=== PATIENT | male | born 1990 | race American Indian/Alaskan Native ===

== ENCOUNTER 2016-09-14 10:43 | Emergency (ER) | payer BC ==
[2016-09-14 11:05] VITALS: BP 112/71
--- NOTE | 2016-09-14 12:35 | Emergency Department Report ---
- General Chief Complaint: Upper Respiratory Infection Stated Complaint: CHEST PAIN Time Seen by Provider: 09/14/16 12:18 Source: patient, family (aunt) Mode of arrival: Ambulatory Limitations: No Limitations - History of Present Illness Initial Comments: Patient presents with cough and shortness of breath. He states he has had moderate congestion that is clear. He states he had subjective fever and took Motrin for this yesterday. He admits to pain in his chest only while coughing. He denies nausea, vomiting, diarrhea, abdominal pain. Symptoms have been present 1 day. He has history of asthma. He denies ever being intubated, or hospitalized for this. MD Complaint: cough, other ("chest congestion") -: Gradual Severity: mild Severity scale (0 -10): 4 Quality: aching Consistency: intermittent Improves With: NSAID, OTC cold medicine Context: sick contacts Associated Symptoms: fever (subj), nasal congestion, cough Treatments Prior to Arrival: Ibuprofen - Related Data Previous Rx's Medication Instructions Recorded Last Taken Type Cetirizine HCl [Allergy] 10 mg PO DAILY #30 tablet 09/14/16 Unknown Rx methylPREDNISolone [Medrol] 4 mg PO DAILY #21 tab.ds.pk 09/14/16 Unknown Rx Allergies Allergy/AdvReac Type Severity Reaction Status Date / Time No Known Allergies Allergy Unverified 01/21/15 10:13 ED Review of Systems ROS: Stated complaint: CHEST PAIN Other details as noted in HPI Constitutional: denies: chills, fever ENT: congestion. denies: ear pain, throat pain Respiratory: cough, shortness of breath. denies: wheezing Cardiovascular: denies: chest pain, palpitations Endocrine: no symptoms reported Gastrointestinal: denies: abdominal pain, nausea, diarrhea Genitourinary: denies: urgency, dysuria Musculoskeletal: denies: back pain, joint swelling, arthralgia Skin: denies: rash, lesions Neurological: denies: headache, weakness, paresthesias ED Past Medical Hx - Past Medical History Hx Headaches / Migraines: Yes Hx Seizures: Yes Hx Asthma: Yes - Surgical History Past Surgical History?: No - Social History Smoking Status: Never Smoker Substance Use Type: None - Medications Home Medications: Home Medications Medication Instructions Recorded Confirmed Last Taken Type Cetirizine HCl [Allergy] 10 mg PO DAILY #30 tablet 09/14/16 Unknown Rx methylPREDNISolone [Medrol] 4 mg PO DAILY #21 tab.ds.pk 09/14/16 Unknown Rx ED Physical Exam - General Limitations: No Limitations General appearance: alert, in no apparent distress - Head Head exam: Present: atraumatic, normocephalic - Eye Eye exam: Present: normal appearance, PERRL - ENT ENT exam: Present: mucous membranes moist, TM's normal bilaterally - Expanded ENT Exam Expanded Mouth exam: Present: normal external inspection Teeth exam: Present: normal inspection Throat exam: Positive: normal inspection - Neck Neck exam: Present: normal inspection - Respiratory Respiratory exam: Present: normal lung sounds bilaterally, wheezes (Right upper lobe, mild). Absent: respiratory distress - Cardiovascular Cardiovascular Exam: Present: regular rate, normal rhythm. Absent: systolic murmur, diastolic murmur, rubs, gallop - GI/Abdominal GI/Abdominal exam: Present: soft, normal bowel sounds - Rectal Rectal exam: Present: deferred - Back Exam Back exam: Present: normal inspection, full ROM - Neurological Exam Neurological exam: Present: alert, oriented X3 - Psychiatric Psychiatric exam: Present: normal affect, normal mood - Skin Skin exam: Present: warm, dry, intact, normal color. Absent: rash ED Course Vital Signs 09/14/16 10:57 Temperature 97.7 F Pulse Rate 96 H Respiratory 20 Rate Blood Pressure 112/71 O2 Sat by Pulse 99 Oximetry ED Medical Decision Making - Medical Decision Making Patient presents with cough and shortness of breath. He has a history of asthma. His physical exam is negative except for mild wheezing and right upper lobe. He states he does not need a refill on his inhaler. I will give him a Medrol Dosepak and give him Zyrtec for seasonal allergies. - Differential Diagnosis pna, asthma Critical Care Time: No Critical care attestation.: If time is entered above; I have spent that time in minutes in the direct care of this critically ill patient, excluding procedure time. ED Disposition Clinical Impression: Asthma, Wheezing, Seasonal allergies Disposition: DISCHARGED TO HOME OR SELFCARE Is pt being admited?: No Does the pt Need Aspirin: No Condition: Stable Instructions: Asthma (ED), Reactive Airways Disease (ED), Allergies (ED) Additional Instructions: It is advised that she follow-up with her PCP within 2-3 days. Follow-up in the ED if shortness of breath unresolved with medication or worsening symptoms. Prescriptions: Cetirizine HCl [Allergy] 10 mg PO DAILY #30 tablet methylPREDNISolone [Medrol] 4 mg PO DAILY #21 tab.ds.pk Referrals: ADRIENNE HOUSTON MD [Primary Care Provider] - 3-5 Days Time of Disposition: 12:38
== END 2016-09-14 13:01 | disposition home or self-care (01) ==
LOC: ED 10:43
DX: J45.909 Unspecified asthma, uncomplicated (principal); J30.2 Other seasonal allergic rhinitis; G43.909 Migraine, unspecified, not intractable, without status migrainosus
CPT/HCPCS: 99282